=== PATIENT | male | born 1990 | race Caucasian/White ===

== ENCOUNTER 2021-02-25 17:17 | Emergency (ER) | payer OTHER ==
[~2021-02-25] VITALS: Ht 190.5 cm; Wt 106.6 kg
[2021-02-25] MEDS ORDERED: ASPIR-TRIN325 MG (20:05)
== END 2021-02-25 21:37 | disposition home or self-care (01) ==
LOC: ED 17:17
DX: M54.5 Low back pain (principal); V89.9XXA Person injured in unspecified vehicle accident, initial encounter; Z79.82 Long term (current) use of aspirin
CPT/HCPCS: 99283